=== PATIENT | female | born 1995 | race Caucasian/White ===

== ENCOUNTER 2016-10-28 16:07 | Inpatient (IN) | payer BC, OTHER ==
[~2016-10-28] VITALS: Ht 170.2 cm; Wt 47.6 kg
[2016-10-28 20:45] VITALS: BP 125/91
--- NOTE | 2016-10-28 20:45 | NUR ---
INTAKE ASSESSMENT BP: 125/91, HR:101, RR:18, SpO2:98%, T:98.1 Pt is in stable condition and able to be admitted on the unit. Unit protocols regarding medication and vital signs every 4 hours were explained. Pt verbalize understanding. Will continue admission upon arrival on the unit.
[2016-10-28 21:01] LABS: *URINE HCG, QUAL NEGATIVE (NEGATIVE)
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
[2016-10-28 21:16] LABS: *AMPHETAMINE, URINE NEGATIVE (NEGATIVE); *BARBITURATE, URINE NEGATIVE (NEGATIVE); *CANNABINOID, URINE POSITIVE (NEGATIVE); *COCCAINE, URINE NEGATIVE (NEGATIVE); *OPIATE, URINE NEGATIVE (NEGATIVE); *PHENCYCLIDINE SCREEN,URINE NEGATIVE (NEGATIVE)
[2016-10-28] MEDS ORDERED: ACETAMINOPHEN 325 MG TABLET PO PRN (21:45)
[2016-10-28] MEDS ORDERED: ONDANSETRON 4 MG/2 ML VIAL IM PRN (21:45)
[2016-10-28] MEDS ORDERED: LORAZEPAM 1 MG TABLET PO PRN ×2 (21:45)
[2016-10-28] MEDS ORDERED: MAG HYDROX/AL HYDROX/SIMETH 30 ML LIQUID UDC PO PRN (21:45)
[2016-10-28] MEDS ORDERED: LORAZEPAM 2 MG/1 ML VIAL IM PRN (21:45)
[2016-10-28] MEDS ORDERED: MAGNESIUM HYDROXIDE 30 ML LIQUID UDC PO PRN (21:45)
[2016-10-28] MEDS ORDERED: DICYCLOMINE HCL 20 MG TABLET PO PRN (21:45)
[2016-10-28] MEDS ORDERED: LOPERAMIDE HCL 2 MG CAPSULE PO PRN ×2 (21:45)
[2016-10-28] MEDS ORDERED: HYDROXYZINE PAMOATE 25 MG CAPSULE PO PRN (21:45)
[2016-10-28] MEDS ORDERED: MIRALAX 17 GM POWD.PACK PO PRN (21:45)
[2016-10-28] MEDS: ONDANSETRON ODT 4 MG TAB.RAPDIS SL PRN (23:49)
[2016-10-28] MEDS: diphenhydrAMINE 50 MG CAPSULE PO PRN (23:49)
--- NOTE | 2016-10-28 23:49 | NUR ---
PRN BENADRYL/ZOFRAN Pt complains of inability to sleep and nausea with no episode of vomiting. PRN Benadryl and Zofran administered as ordered. Breathing even and unlabored. Safety measures in place. Will monitor effectiveness.
[2016-10-28] MEDS ORDERED: ONDANSETRON ODT 4 MG TAB.RAPDIS ONE (23:57)
[2016-10-28] MEDS ORDERED: diphenhydrAMINE 50 MG CAPSULE ONE (23:57)
[2016-10-29] VITALS: BP 126/91
[2016-10-29] MEDS ORDERED: BUTA-247 PO (00:05)
[2016-10-29] MEDS ORDERED: IBUP-1957 PO (00:05)
[2016-10-29] MEDS ORDERED: RIZA10TA27 SL (00:05)
[2016-10-29] MEDS ORDERED: TOPI50TA24 PO (00:05)
[2016-10-29 00:29] LABS: BASOPHILS % (AUTO) 0.5 % (0.0-2.0); EOSINOPHILS # (AUTO) 0.1 K/uL (0.0-0.7); EOSINOPHILS % (AUTO) 1.8 % (0.0-7.0); HEMATOCRIT 43.6 % (37-47); HEMOGLOBIN 15.1 G/DL (12.0-16.0); LYMPHOCYTES # (AUTO) 2.3 K/UL (0.8-4.8); LYMPHOCYTES % (AUTO) 30.4 % (20.5-51.5); MEAN CORPUSCULAR HEMOGLOBIN 31.5 UUG (27.0-31.0); MEAN CORPUSCULAR HGB CONC 35 g/dL (32.0-37.0); MEAN CORPUSCULAR VOLUME 91.2 FL (81.0-99.0); MONOCYTES # (AUTO) 0.7 K/UL (0.1-1.30); MONOCYTES % (AUTO) 8.9 % (0.0-11.0); NEUTROPHILS # (AUTO) 4.4 K/UL (1.8-8.9); NEUTROPHILS % (AUTO) 58.4 % (38.5-71.5); PLATELET COUNT (AUTO) 232 K/UL (150-450); RED BLOOD CELL COUNT(AUTO) 4.78 MIL/UL (4.2-5.4); WHITE BLOOD COUNT (AUTO) 7.5 K/UL (4.0-11.2)
[2016-10-29 00:34] LABS: ETHANOL < 3 MG/DL (0-0)
[2016-10-29 00:39] LABS: ALANINE AMINOTRANSFERASE 17 U/L (14-59); ALKALINE PHOSPHATASE 77 U/L (50-136); AMYLASE 170 U/L (25-115); ASPARTATE AMINOTRANSFERASE 11 U/L (15-37); BILIRUBIN,TOTAL 1.6 mg/dL (0.2-1.0); CARBON DIOXIDE 28 mmol/L (21-32); CHLORIDE 101 mmol/L (98-107); CREATININE 0.7 mg/dL (0.6-1.3); GLUCOSE 100 mg/dL (74-106); LIPASE 1147 U/L (73-393); MAGNESIUM 2.1 mg/dL (1.8-2.4); POTASSIUM 3.3 mmol/L (3.5-5.1); TOTAL PROTEIN, SERUM 8.1 g/dL (6.4-8.2); UREA NITROGEN, BLOOD 11 mg/dL (7-18)
--- NOTE | 2016-10-29 00:49 | NUR ---
PRN BENADRYL/ZOFRAN REASSESSMENT PRN medications effective. Pt lying in bed with eyes closed noted to be asleep. Respirations 16, breathing is even and unlabored. Will continue to monitor.
[2016-10-29 00:50] LABS: THYROID STIMULATING HORMONE 2.444 mIU/mL (0.358-3.740)
--- NOTE | 2016-10-29 04:00 | NUR ---
VITALS REFUSED/CIWA DEFERRED 0400 vitals refused. CIWA deferred d/t pt lying in bed with eyes closed noted to be asleep. Respirations 16, breathing is even and unlabored. Safety measures in place. Will continue to monitor.
--- NOTE | 2016-10-29 07:00 | NUR ---
Start of Shift Report from night nurse: pt is 21 y/o female newly admitted here last night for Benzo dependence r/t Xanax 2 bar occasionally for the last 3 years with the last use of 1.5 bars 10/26/16 and pt Marijuana 1g smoked daily for 3 years with the last use before admission; no taper ordered at this time. Pt is a full code, NKA, regular diet, fall and seizure precautions ordered. HHx: Anxiety, depression Chlamydia 2 years ago, seizure 02/2016 and pt takes medications at home with Topamax as an anti-convulsant, first time doing detox. PRN Benadryl and Zofran given last night. Abnormal K+ 3.3 with new orders for supplement to start during my shift. Home medications need to be reconciled and Dr. Shetty is aware. Last CIWA 4. Pt is asleep in room. Will cont. to monitor the pt.
--- NOTE | 2016-10-29 07:25 | NUR ---
END OF SHIFT Pt is a 21 year old female admitted on 10/28/16 for Benzo dependency. Pt is full code with NKA. She reports a PMHx of anxiety, depression, seizre (feb 2016), migraines, and chlamydia (2 years ago). At 2349 she received PRN Benadryl and Zofran. She slept a total of 6 hrs, Intake: 596mL, Void:x2, BM:0 CIWA:4. Pt remains alert and oriented x4, breathing is even and unlabored. Safety measures in place. Endorsed to oncoming shift.
[2016-10-29 08:00] VITALS: BP 105/61
[2016-10-29] MEDS ORDERED: POTASSIUM CHLORIDE 20 MEQ TAB.PRT.SR PO ONE (09:00)
[2016-10-29] MEDS ORDERED: TUBERCULIN,PURIF.PROT.DERIV. 5 TU/0.1 ML TEST ID ONE (09:00)
[2016-10-29] MEDS: MULTIVITAMINS,THERAPEUTIC TABLET PO SCH (09:26)
[2016-10-29] MEDS: IBUPROFEN 400 MG TABLET PO PRN (09:26)
--- NOTE | 2016-10-29 09:30 | NUR ---
PRN Medication Administration-Ativan & New Orders Pt is in room with restlessness, anxiety, agitation, c/o body ache 5/10 pain, and nausea with CIWA 9; PRN Ativan 1mg w/n parameters, Motrin 400mg and Zofran 4mg given as ordered. New Order for 4 day Ativan taper to start this afternoon. Will reassess in 1H.
[2016-10-29] MEDS: ONDANSETRON ODT 4 MG TAB.RAPDIS SL PRN (09:32)
--- NOTE | 2016-10-29 10:30 | NUR ---
Reassessment & PPD Test Pt is resting in bed relaxed, eating breakfast, and denies nausea and body ache decreased to 2/10; PRN Ativan, Motrin and Zofran are effective. Will cont. to monitor the pt.
[2016-10-29 12:00] VITALS: BP 112/66
[2016-10-29] MEDS: LORAZEPAM 1 MG TABLET PO SCH ×3 (12:57→21:36)
[2016-10-29] MEDS: TOPIRAMATE 25 MG TABLET PO SCH ×2 (12:57→21:37)
[2016-10-29 16:00] VITALS: BP 119/82
[2016-10-29] MEDS: GABAPENTIN 300 MG CAPSULE PO SCH ×2 (16:45→21:36)
[2016-10-29] MEDS: ESCITALOPRAM OXALATE 10 MG TABLET PO SCH (16:45)
--- NOTE | 2016-10-29 19:21 | NUR ---
End of Shift Report to night nurse: pt is 21 y/o female newly admitted here last night for Benzo dependence r/t Xanax 2 bar occasionally for the last 3 years with the last use of 1.5 bars 10/26/16 and pt Marijuana 1g smoked daily for 3 years with the last use before admission; 4 day Ativan taper ordered and first dose of Ativan 1mg CIWA 9 was a PRN at 0900H before the start of taper. Pt is a full code, NKA, regular diet, fall and seizure precautions ordered. HHx: Anxiety, depression Chlamydia 2 years ago, seizure 02/2016 and pt takes medications at home with Topamax as an anti-convulsant, first time doing detox. Features symmetrical, PERRLA 4mm, no CHURCH, dizziness or numbness or tingling noted during my shift. Pt denies chest pain or SOB present during my shift. Pt c/o generalized pain and nausea so PRN Motrin 400mg and Zofran given this morning. NO Vomiting, diarrhea or ab cramps noted, last BM yesterday Pt denies dysuria. Skin is intact, PPD test done on Left FA. Abnormal K+ 3.3 with K-Dur 40mEq supplement given during my shift. Home medications reconciled with Topamax and Lexapro started during my shift. No hallucinations, delusions, or suicidal ideations noted. Pt attended group therapy and activities during my shift. Last CIWA 9.
[2016-10-29 20:00] VITALS: BP 113/81
--- NOTE | 2016-10-29 20:00 | NUR ---
Start of Shift Pt is 21 y/o female newly admitted here last night for Benzo dependence r/t Xanax 2 bar occasionally for the last 3 years with the last use of 1.5 bars 10/26/16 and Marijuana 1g smoked daily for 3 years with the last use before admission; 4 day Ativan taper ordered.. Pt is a full code, NKA, regular diet, fall and seizure precautions ordered. Hx: Anxiety, depression Chlamydia 2 years ago, seizure 02/2016 and pt takes medications at home with Topamax as an anti-convulsant, first time doing detox. Features symmetrical, PERRLA 4mm, no CHURCH, dizziness or numbness or tingling noted during my shift. Pt denies chest pain or SOB present during my shift. NO vomiting, diarrhea or ab cramps noted, last BM yesterday. Pt denies dysuria. Skin is intact, no hallucinations, delusions, or suicidal ideations noted, last CIWA 9.
[2016-10-29 20:43] VITALS: BP 113/81
[2016-10-30] MEDS: diphenhydrAMINE 50 MG CAPSULE PO PRN (00:09)
--- NOTE | 2016-10-30 01:33 | NUR ---
Vital sign Pt is stable, no distress noted. Addendum: 10/30/16 at 0137 by GONZALEZ WALTERS RN Amended: Links added.
[2016-10-30] MEDS: CLONIDINE HCL 0.1 MG TABLET PO PRN (03:03)
[2016-10-30 04:00] VITALS: BP 94/68
--- NOTE | 2016-10-30 07:25 | NUR ---
End of Shift Pt is 21 y/o female newly admitted here last night for Benzo dependence r/t Xanax 2 bar occasionally for the last 3 years with the last use of 1.5 bars 10/26/16 and Marijuana 1g smoked daily for 3 years with the last use before admission; 4 day Ativan taper ordered.. Pt is a full code, NKA, regular diet, fall and seizure precautions ordered. Hx: Anxiety, depression Chlamydia 2 years ago, seizure 02/2016 and pt takes medications at home with Topamax as an anti-convulsant, first time doing detox. Features symmetrical, PERRLA 4mm, no CHURCH, dizziness or numbness or tingling noted during my shift. Pt denies chest pain or SOB present during my shift. NO vomiting, diarrhea or ab cramps noted, last BM yesterday. Pt denies dysuria. Skin is intact, no hallucinations, delusions, or suicidal ideations noted, last CIWA 7. Pt c/o insomnia, Benadryl and Clonidine given during shift. Pt slept 1 hr during shift. Endorsed to am nurse.
--- NOTE | 2016-10-30 07:30 | NUR ---
START OF SHIFT NOTE Patient is alert and orientated X 4. Vital signs WNL. Patient is on a 4 day Ativan taper started 10/29/16 tolerated well. Last CIWA 7 per night nurse. Patient reported having trouble sleeping last night, patient slept 1 hour. Patient is laying in bed resting, respirations are even and unlabored. All safety measures in place, call light within reach, bed locked and in lowest position. Will continue to monitor patient.
[2016-10-30 08:00] VITALS: BP 84/57
[2016-10-30] MEDS: ESCITALOPRAM OXALATE 10 MG TABLET PO SCH (09:31)
[2016-10-30] MEDS: LORAZEPAM 1 MG TABLET PO SCH ×4 (09:31→21:10)
[2016-10-30] MEDS: MULTIVITAMINS,THERAPEUTIC TABLET PO SCH (09:32)
[2016-10-30] MEDS: GABAPENTIN 300 MG CAPSULE PO SCH ×3 (09:32→21:10)
[2016-10-30] MEDS: TOPIRAMATE 25 MG TABLET PO SCH ×2 (09:32→21:11)
[2016-10-30 12:00] VITALS: BP 85/57
[2016-10-30] MEDS ORDERED: MAGNESIUM OXIDE 400 MG TABLET PO ONE (12:30)
[2016-10-30] MEDS ORDERED: POTASSIUM CHLORIDE 20 MEQ TAB.PRT.SR PO ONE ×2 (12:30→12:45)
[2016-10-30 13:10] LABS: HEPATITIS B SURFACE AG Negative (Negative)
[2016-10-30 16:00] VITALS: BP 102/57
--- NOTE | 2016-10-30 18:47 | NUR ---
END OF SHIFT REPORT Patient is alert and orientated X 4. Patient remained in bed most of the morning due to not sleeping last night. Vital signs remain within normal limits throughout the day. Last CIWA 4. Patient is on 4 day Ativan taper and tolerating well. No PRNs given today. Patient has been complaint with MD orders. Patient participated in group activities this afternoon after resting. Patient is scheduled for an Abdominal ultrasound for tomorrow due to elevated Lipase levels. Patient is extremely anxious but aware of the situation and knows she has to remain NPO after midnight. All safety measures in place. All needs have been met. Will continue to monitor patient until endorsed to oncoming nurse.
--- NOTE | 2016-10-30 19:12 | NUR ---
Start of shift note Received report from day shift nurse. Pt is a 21 yo female, A+Ox4, presenting to [facility] for Benzo/Marijuana dependence. Pt has NKA, is on Full Code status, and on Regular diet. Pt is on Fall and Seizure precautions. Pt has HX of Anxiety, Depression, Seizure, and Chlamydia. Pt is on 4 day Ativan taper, tolerated well. No s/s of distress noted at this time. Respirations even and unlabored. Will continue to monitor.
[2016-10-30 20:15] VITALS: BP 115/68
[2016-10-30] MEDS: TRAZODONE 50 MG TABLET PO PRN (23:42)
--- NOTE | 2016-10-30 23:42 | NUR ---
PRN Trazodone Pt c/o inability to sleep and requested for PRN Trazodone. Medication given and tolerated well. Will reassess within 1 HR. Will continue to monitor.
[2016-10-31 00:11] VITALS: BP 112/66
--- NOTE | 2016-10-31 00:40 | NUR ---
PRN Trazodone Reassessment Medication effective. Pt is resting well in bed. No s/s of ASE/distress noted at this time. Respirations even and unlabored. Will continue to monitor.
[2016-10-31 04:05] VITALS: BP 118/68
--- NOTE | 2016-10-31 07:00 | NUR ---
End of shift note Pt is a 21 yo female, A+Ox4, presenting to [facility] for Benzo/Marijuana dependence. Pt has NKA, is on Full Code status, and on Regular diet. Pt is on Fall and Seizure precautions. Pt has HX of Anxiety, Depression, Seizure, and Chlamydia. Pt is on 4 day Ativan taper, tolerated well. Pt was given PRN Trazodone @ 2342. Pt slept for a total of 8 HRS. Last CIWA: 2 @0400. No s/s of distress noted at this time. Respirations even and unlabored. Will endorse to day shift nurse.
--- NOTE | 2016-10-31 07:32 | NUR ---
START OF SHIFT REPORT Patient is alert and orientated X 4. Vital signs are stable. Patient has been NPO since midnight for an abdominal ultrasound. Patient slept 8 hours last night according to night nurse with last CIWA 2, Trazodone PRN given last night with effectiveness. All safety measures in place, will continue to monitor patient.
[2016-10-31 08:00] VITALS: BP 98/68
[2016-10-31 08:16] LABS: BASOPHILS # (AUTO) 0.1 K/uL (0.0-8.0); BASOPHILS % (AUTO) 1.1 % (0.0-2.0); EOSINOPHILS # (AUTO) 0.2 K/uL (0.0-0.7); EOSINOPHILS % (AUTO) 3.3 % (0.0-7.0); HEMATOCRIT 46.8 % (37-47); HEMOGLOBIN 15.4 G/DL (12.0-16.0); LYMPHOCYTES # (AUTO) 3.6 K/UL (0.8-4.8); LYMPHOCYTES % (AUTO) 53.8 % (20.5-51.5); MEAN CORPUSCULAR HEMOGLOBIN 30.5 UUG (27.0-31.0); MEAN CORPUSCULAR HGB CONC 33 g/dL (32.0-37.0); MEAN CORPUSCULAR VOLUME 92.9 FL (81.0-99.0); MONOCYTES # (AUTO) 0.5 K/UL (0.1-1.30); MONOCYTES % (AUTO) 7.8 % (0.0-11.0); NEUTROPHILS # (AUTO) 2.2 K/UL (1.8-8.9); PLATELET COUNT (AUTO) 252 K/UL (150-450); RED BLOOD CELL COUNT(AUTO) 5.04 MIL/UL (4.2-5.4); WHITE BLOOD COUNT (AUTO) 6.6 K/UL (4.0-11.2)
[2016-10-31] MEDS: MULTIVITAMINS,THERAPEUTIC TABLET PO SCH (08:27)
[2016-10-31] MEDS: GABAPENTIN 300 MG CAPSULE PO SCH ×3 (08:27→20:06)
[2016-10-31] MEDS: TOPIRAMATE 25 MG TABLET PO SCH ×2 (08:27→20:07)
[2016-10-31] MEDS: ESCITALOPRAM OXALATE 10 MG TABLET PO SCH (08:27)
[2016-10-31] MEDS: LORAZEPAM 1 MG TABLET PO SCH ×3 (08:28→20:06)
[2016-10-31 08:50] LABS: CREATININE 0.9 mg/dL (0.6-1.3); PHOSPHOROUS 4.9 mg/dL (2.5-4.9); POTASSIUM 3.5 mmol/L (3.5-5.1)
[2016-10-31 12:00] VITALS: BP 93/57
[2016-10-31 16:00] VITALS: BP 104/78
[2016-10-31] MEDS ORDERED: RIZATRIPTAN SL PRN (18:45)
--- NOTE | 2016-10-31 18:45 | NUR ---
MD communication Pt states that she has a migraine headache and would like to take her own home meds. Dr Shetty notified, order "ok to use pt own home meds Maxalt 10mg SL Q8H PRN for migraine headaches. " Orders entered, unable to enter orders.
--- NOTE | 2016-10-31 18:54 | NUR ---
317 END OF SHIFT NOTE Patient is alert and orientated X4. Vital signs have been stable throughout the day. Patient is on a 4 day Ativan taper and tolerating well. Last CIWA 4. Patient had an abd ultrasound done this morning. A chest X-Ray was ordered to rule out TB, and a urine STD test was ordered per patients request. Patient has been complaint with MD orders and treatment plan. She has participated in group activities. She has been emotional throughout the day but easily uplifted with encouragement. All needs have been met and all safety measures in place; call light within reach, bed locked and in lowest position. Will continue to monitor patient until endorsed to night nurse.
--- NOTE | 2016-10-31 19:12 | NUR ---
Start of shift note Received report from day shift nurse. Pt is a 21 yo female, A+Ox4, presenting to [facility] for Benzo/Marijuana dependence. Pt has NKA, is on Full Code status, and on Regular diet. Pt is on Fall and Seizure precautions. Pt has HX of Anxiety, Depression, Seizure, and Chlamydia. Pt is on 4 day Ativan taper, tolerated well. No s/s of distress noted at this time. Respirations even and unlabored. Will continue to monitor.
--- NOTE | 2016-10-31 20:12 | NUR ---
PRN Maxalt Pt c/o migraine and requested for PRN Maxalt. Medication given and tolerated well. Will reassess within 1 HR. Will continue to monitor.
[2016-10-31 20:18] VITALS: BP 104/78
--- NOTE | 2016-10-31 21:10 | NUR ---
PRN Maxalt Reassessment Medication effective. Pt expresses migraine relief. No s/s of ASE/distress noted at this time. Respirations even and unlabored. Will continue to monitor.
[2016-11-01 00:17] VITALS: BP 114/80
[2016-11-01] MEDS: TRAZODONE 50 MG TABLET PO PRN ×2 (01:30→23:21)
--- NOTE | 2016-11-01 01:30 | NUR ---
PRN Trazodone Pt c/o inability to sleep and requested for PRN Trazodone. Medication given and tolerated well. Will reassess within 1 HR. Will continue to monitor.
[2016-11-01 04:32] VITALS: BP 119/83
--- NOTE | 2016-11-01 07:00 | NUR ---
End of shift note Pt is a 21 yo female, A+Ox4, presenting to [facility] for Benzo/Marijuana dependence. Pt has NKA, is on Full Code status, and on Regular diet. Pt is on Fall and Seizure precautions. Pt has HX of Anxiety, Depression, Seizure, and Chlamydia. Pt is on 4 day Ativan taper, tolerated well. Pt was given PRN Maxalt @2012 and PRN Trazodone @0130. Pt slept for a total of 6 HRS. Last CIWA: 2 @0400. No s/s of distress noted at this time. Respirations even and unlabored. Will endorse to day shift nurse.
[2016-11-01 08:00] VITALS: BP 109/66
--- NOTE | 2016-11-01 08:15 | NUR ---
START OF SHIFT; RECEIVED PT A/O X 4. SHE PRESENTS WITH ANXIOUS MOOD AND RESTRICTED AFFECT. SHE C/O SEVERE ANXIETY. CIWA 4. ATIVAN TAPER IN PROGRESS. SHE REQUESTED PRN VISTARIL WITH AM MEDS TO HELP WITH ANXIETY. PRN VISTARIL ADMINISTERED ORERED. PT BECAME TEARFUL ON ASSESSMENT. SHE STATES SHE DOES NOT KNOW HOW TO COPE WITH HER ANXIETY. EDUCATED PT ON DEP BREATHING EXERCISES. PT EXPRESSED VERBAL UNDERSTANDING OF EDUCATION. ENCOURAGED GROUP ATTENDANCE TO IMPROVE COPING SKILLS AND PREVENT RELAPSE. WILL CONTINUE TO MONITOR.
[2016-11-01] MEDS: TOPIRAMATE 25 MG TABLET PO SCH ×2 (09:05→21:00)
[2016-11-01] MEDS: ESCITALOPRAM OXALATE 10 MG TABLET PO SCH (09:05)
[2016-11-01] MEDS: MULTIVITAMINS,THERAPEUTIC TABLET PO SCH (09:05)
[2016-11-01] MEDS: LORAZEPAM 1 MG TABLET PO SCH ×2 (09:05→21:00)
[2016-11-01] MEDS: GABAPENTIN 300 MG CAPSULE PO SCH ×3 (09:05→21:00)
--- NOTE | 2016-11-01 09:15 | NUR ---
PT STATES THE VISTARIL WAS ONLY MILDLY EFFECTIVE IN REDUCING HER ANXIETY.
[2016-11-01] MEDS ORDERED: HYDROXYZINE PAMOATE 25 MG CAPSULE PO ONE (11:45)
[2016-11-01] MEDS: CLONIDINE HCL 0.1 MG TABLET PO PRN (11:54)
--- NOTE | 2016-11-01 11:55 | NUR ---
PRN CLONIDINE AND PRN VISTARIL GIVEN FOR REPORTED SEVERE ANXIETY,AND SWEATS. WILL MONITOR EFFECTIVENESS.
[2016-11-01 12:00] VITALS: BP 100/56
--- NOTE | 2016-11-01 12:55 | NUR ---
PRN VISTARIL AND CLONIDINE EFFECTIVE. PT IS LAYING IN BED WITH EYES CLOSED.RESPIRATIONS EVEN AND UNLABORED.
[2016-11-01 16:00] VITALS: BP 90/65
--- NOTE | 2016-11-01 19:22 | NUR ---
END OF SHIFT: PT CONTINUES ON ATIVAN TAPER. SHE C/O ANXIETY INTERMITTENTLY THOUGH OUT SHIFT. LAST CIWA 5. PRN VISTARIL GIVEN X 2 AND EFFECTIVE. PT ATTENDED GROUPS AND INTERACTED WITH PEERS. 1500 MEDS HELD PT WAS ASLEEP. PT WAS COMPLIANT WITH INCREASED FLUIDS. WILL PASS SHIFT REPORT TO ONCOMING NIGHT NURSE.
--- NOTE | 2016-11-01 19:23 | NUR ---
Start of shift note Received report from day shift nurse. Pt is a 21 yo female, A+Ox4, presenting to [facility] for Benzo/Marijuana dependence. Pt has NKA, is on Full Code status, and on Regular diet. Pt is on Fall and Seizure precautions. Pt has HX of Anxiety, Depression, Seizure, and Chlamydia. Pt is on 4 day Ativan taper, tolerated well. No s/s of distress noted at this time. Respirations even and unlabored. Will continue to monitor.
[2016-11-01 20:20] VITALS: BP 105/58
[2016-11-01] MEDS ORDERED: HYDROXYZINE PAMOATE 25 MG CAPSULE PO PRN (21:45)
--- NOTE | 2016-11-01 23:21 | NUR ---
PRN Trazodone Pt c/o inability to sleep and requested for PRN Trazodone. Medication given and tolerated well. Will reassess within 1 HR. Will continue to monitor.
[2016-11-02 00:51] VITALS: BP 91/51
[2016-11-02 04:30] VITALS: BP 95/58
--- NOTE | 2016-11-02 07:00 | NUR ---
End of shift note Pt is a 21 yo female, A+Ox4, presenting to [facility] for Benzo/Marijuana dependence. Pt has NKA, is on Full Code status, and on Regular diet. Pt is on Fall and Seizure precautions. Pt has HX of Anxiety, Depression, Seizure, and Chlamydia. Pt is on 4 day Ativan taper, tolerated well. Pt was given PRN Trazodone @2321. Pt slept for a total of 7 HRS. Last CIWA: 1 @0400. No s/s of distress noted at this time. Respirations even and unlabored. Will endorse to day shift nurse.
--- NOTE | 2016-11-02 07:25 | NUR ---
START OF SHIFT NOTE Received repot from night nurse, 21 year old female admitted for Benzo dependence. Pt is full code with NKA. Pt reported a PMH of anxiety, depression, seizure (feb 2016), migraines, and chlamydia (2 years ago). Pt cont with Ativan taper. Per endorsement pt received PRN Trazodone, slept for 7 hours, last CIWA was 1. Received patient alert and oriented x4, Educated regarding plan of care for the day and medication regimen. Safety measures in place. call light within reach, Will continue to monitor.
[2016-11-02 08:00] VITALS: BP 109/65
[2016-11-02] MEDS: GABAPENTIN 300 MG CAPSULE PO SCH ×3 (08:18→21:23)
[2016-11-02] MEDS: ESCITALOPRAM OXALATE 10 MG TABLET PO SCH (08:18)
[2016-11-02] MEDS: MULTIVITAMINS,THERAPEUTIC TABLET PO SCH (08:18)
[2016-11-02] MEDS: TOPIRAMATE 25 MG TABLET PO SCH ×2 (08:19→21:23)
[2016-11-02 12:00] VITALS: BP 98/55
[2016-11-02] MEDS ORDERED: ESCI10TA PO (13:30)
[2016-11-02] MEDS ORDERED: GABA-534 PO (13:30)
[2016-11-02] MEDS ORDERED: TRAZ-144 PO (13:30)
[2016-11-02] MEDS ORDERED: CLON0.1T14 PO (13:30)
[2016-11-02] MEDS ORDERED: HYDR-3895 PO (13:30)
[2016-11-02 16:00] VITALS: BP 97/68
[2016-11-02 17:29] LABS: *AMPHETAMINE, URINE NEGATIVE (NEGATIVE); *BARBITURATE, URINE NEGATIVE (NEGATIVE); *CANNABINOID, URINE POSITIVE (NEGATIVE); *COCCAINE, URINE NEGATIVE (NEGATIVE); *OPIATE, URINE NEGATIVE (NEGATIVE); *PHENCYCLIDINE SCREEN,URINE NEGATIVE (NEGATIVE)
--- NOTE | 2016-11-02 18:57 | NUR ---
END OF SHIFT NOTE Gave report to night nurse, 21 year old female admitted for Benzo dependence. Pt is full code with ALFREDO. Pt reported a PMH of anxiety, depression, seizure (feb 2016), migraines, and chlamydia (2 years ago). Pt completed her Ativan taper tolerated well. Pt scheduled for discharge in AM urine drug screen completed and placed in the chart. Last CIWA score noted -1. Encourage Po fluids as tolerated. Pt remained compliant with plan of care. All safety measures in place, Call light within reach. Pt endorsed to night nurse in stable condition.
--- NOTE | 2016-11-02 19:15 | NUR ---
START OF SHIFT Received 21 year old female patient admitted on 10/28/16 for Xanax and Marijuana dependency. Pt is full code with NKA. Pt reports a PMHx of anxiety, depression, seizure Nov (2015), and chlamydia ( 2 years ago). Pt reports using Xanax PO 2 bars off and on for 3 years. Last dose was 1.5 bars on 10/26/16. Marijuana 1 gram daily for 3 years. Last dose was 1 gram on 10/28/16. Pt completed her 4 day Ativan taper and is scheduled to be DC tomorrow. Per endorsement, pt noted with TB + CXR is scheduled for tonight. Pt is alert and oriented x4, breathing is even and unlabroed. Safety measures in place. Will continue to monitor.
[2016-11-02] MEDS: IBUPROFEN 400 MG TABLET PO PRN (19:35)
--- NOTE | 2016-11-02 19:35 | NUR ---
PRN MOTRIN Pt complains of headache 5/10. PRN Motrin administered as ordered. Breathing is even and unlabored, safety measures in place. Will monitor effectiveness of medication.
[2016-11-02 20:00] VITALS: BP 111/77
--- NOTE | 2016-11-02 20:35 | NUR ---
PRN MOTRIN REASSESSMENT PRN medication effective. Pt reports pain decreased to 3/10. Breathing even and unlabored. Safety measures in place. Will monitor.
[2016-11-02] MEDS: TRAZODONE 50 MG TABLET PO PRN (23:21)
--- NOTE | 2016-11-02 23:21 | NUR ---
PRN TRAZODONE Pt complains of inability to sleep. PRN Trazodone administered as ordered. Breathing is even and unlabored, safety measures in place. Will monitor.
[2016-11-03] VITALS: BP 92/61
--- NOTE | 2016-11-03 00:30 | NUR ---
PRN TRAZODONE REASSESSMENT PRN medication effective. Pt lying in bed with eyes closed noted to be asleep. Respirations 16, breathing is even and unlabored. Safety measures in place. Will monitor.
--- NOTE | 2016-11-03 07:01 | NUR ---
END OF SHIFT Pt is a 21 year old female patient admitted on 10/28/16 for Xanax and Marijuana dependency. Pt is full code with NKA. Pt reports a PMHx of anxiety, depression, seizure Nov (2015), and chlamydia ( 2 years ago). She is scheduled to be DC today (11/03/16) to [facility]. CXR was completed and result is negative. At 1935 she received PRN Motrin, at 2321 she received PRN Trazodone. She slept a total of 6 hrs, Intake: 2051mL, Void: x3, BM:0, CIWA: 1. Pt remains alert and oriented x4, breathing is even and unlabroed. Safety measures in place. Endorsed to oncoming shift.
--- NOTE | 2016-11-03 07:45 | NUR ---
START OF SHIFT NOTE Received repot from night nurse, 21 year old female admitted for Benzo dependence. Pt is full code with NKA. Pt reported a PMH of anxiety, depression, seizure (feb 2016), migraines, and chlamydia (2 years ago). Pt cont with Ativan taper. Per endorsement pt received PRN Motrin/Trazodone, slept for 6 hours, last CIWA was 1. Currently pt is resting in her room, responsive to verbal and tactile stimuli. Breathing normal no SOB noted. Skin intact warm and dry to touch. Safety measures in place. call light within reach, Will continue to monitor.
[2016-11-03 08:00] VITALS: BP 100/65
[2016-11-03] MEDS: TOPIRAMATE 25 MG TABLET PO SCH (08:23)
[2016-11-03] MEDS: ESCITALOPRAM OXALATE 10 MG TABLET PO SCH (08:23)
[2016-11-03] MEDS: GABAPENTIN 300 MG CAPSULE PO SCH (08:23)
[2016-11-03] MEDS: MULTIVITAMINS,THERAPEUTIC TABLET PO SCH (08:23)
--- NOTE | 2016-11-03 09:47 | NUR ---
DISCHARGE NOTE Pt is in stable condition. Vital signs WNL, Pt is alert and oriented x4, Skin intact, Pt denies any SI/HI ideation. All discharge paper work completed dated and signed. Pt educated about discharge instructions, What to do after discharge, When to contact MD as well as the s/s reportable to MD, Pt verbalized understanding. Pt's last CIWA-0. Pt left the building with all her belongings and Prescriptions, and her own medications. Pt left the unit at 0947. MD has been contracted and notified of pt's discharge.
[2016-11-04 08:08] LABS: *GC NAA Negative (Negative); *TRIC.VAG. NAA Negative (Negative)
== END 2016-11-03 09:47 | disposition other institution (70) | DRG 895 ==
LOC: SRC 20:01
PROVIDERS: ADMIT Internal Medicine; ATTEND Internal Medicine
PROC: HZ2ZZZZ Detoxification Services for Substance Abuse Treatment (ICD-10-PCS; principal; 2016-10-28)
PROC: HZ41ZZZ Group Counseling for Substance Abuse Treatment, Behavioral (ICD-10-PCS; 2016-10-29)
PROC: HZ31ZZZ Individual Counseling for Substance Abuse Treatment, Behavioral (ICD-10-PCS; 2016-10-31)
DX: F13.230 Sedative, hypnotic or anxiolytic dependence with withdrawal, uncomplicated (principal); K85.90 Acute pancreatitis without necrosis or infection, unspecified; F41.9 Anxiety disorder, unspecified; G43.909 Migraine, unspecified, not intractable, without status migrainosus; Z87.820 Personal history of traumatic brain injury; F32.9 Major depressive disorder, single episode, unspecified; F17.210 Nicotine dependence, cigarettes, uncomplicated; Z79.899 Other long term (current) drug therapy
CPT/HCPCS: 36415; 70030-TC; 71010; 76700; 80307; 80346; 80349; 83690; 83735; 84100; 84443; 84703; 85025; 86580; 86592; 86705; 86803; 87340; 87491; 87806; A4663; G0480; Q0162; Q0163